=== PATIENT | male | born 1965 | race Caucasian/White ===

== ENCOUNTER 2022-07-26 12:58 | Inpatient (IN) | payer BC, MEDICARE ==
[~2022-07-26] VITALS: Ht 167.6 cm; Wt 101.6 kg
[2022-07-26] MEDS ORDERED: ONDANSETRON HCL 4MG/2ML INJ IV STA (13:32)
[2022-07-26] MEDS ORDERED: MECLIZINE 25MG TABLET PO ONE (13:45)
[2022-07-26] MEDS ORDERED: SODIUM CHLORIDE 0.9% 1,000 ML IV ONE (13:45)
[2022-07-26 13:48] LABS: BASOPHILS % 0.3 % (0.0-2.0); EOSINOPHILS % 1.1 % (0.0-5.0); HEMATOCRIT. 44.1 % (42.0-52.0); HEMOGLOBIN. 15.4 g/dL (14.0-18.0); LYMPHOCYTES % 20.7 % (20.0-50.0); MEAN CORPUSCULAR HEMOGLOBIN 29.6 pg (28.0-32.0); MEAN CORPUSCULAR VOLUME 84.8 fL (80.0-94.0); MEAN PLATELET VOLUME 8.7 fl (7.4-10.4); MONOCYTES % 5.1 % (2.0-8.0); NEUTROPHILS % 72.8 % (40.0-76.0); PLATELET 330 x1000/uL (130-400); RED CELL DISTRIBUTION WIDTH 13.3 % (11.6-14.6)
[2022-07-26 13:54] LABS: CHLORIDE 103 mEq/L (98-107)
[2022-07-26 13:58] LABS: PARTIAL THROMBOPLASTIN TIME 28.5 sec (23.4-31.0)
[2022-07-26] MEDS ORDERED: KCL 20MEQ/100ML PREMIX 100 ML IV ONE (14:30)
[2022-07-26] MEDS ORDERED: POTASSIUM CHLORIDE 20MEQ TABLET SR PO ONE (14:30)
[2022-07-26] MEDS ORDERED: MAGNESIUM 1 G PREMIX 100 ML IV ONE (14:30)
[2022-07-26] MEDS ORDERED: AZITHROMYCIN 500MG/250ML 250 ML IV ONE (15:30)
[2022-07-26] MEDS ORDERED: CEFTRIAXONE 1 G PREMIX 50 ML IV ONE (15:30)
[2022-07-26] MEDS ORDERED: SODIUM CHLORIDE 0.9% 1000ML BAG (SEPSIS BOLUS) IV ONE (15:30)
[2022-07-26] MEDS ORDERED: ASPIRIN 81MG TABLET PO ONE (15:30)
[2022-07-26 18:35] LABS: CLARITY URINE CLEAR (CLEAR); COLOR URINE YELLOW (YELLOW); KETONES URINE NEGATIVE (NEGATIVE); LEUKOCYTE ESTERASE URINE NEGATIVE (NEGATIVE); NITRITE URINE NEGATIVE (NEGATIVE); OCCULT BLOOD URINE NEGATIVE (NEGATIVE); PROTEIN URINE 1+ (NEGATIVE); UROBILINOGEN URINE 0.2 E.U./dL (0.2-1.0)
[2022-07-26 21:45] VITALS: BP 147/79
[2022-07-26] MEDS ORDERED: ATEN-42 PO (23:13)
[2022-07-26] MEDS ORDERED: HYDR25TA PO (23:13)
[2022-07-26] MEDS ORDERED: AMLO5TAB88 PO (23:13)
[2022-07-26] MEDS ORDERED: LISI20TA31 PO (23:13)
[2022-07-26] MEDS ORDERED: ONDANSETRON HCL 4MG/2ML INJ IV PRN (23:15)
[2022-07-27] VITALS: BP 152/92
[2022-07-27 04:00] VITALS: BP 155/82
[2022-07-27 05:34] LABS: BASOPHILS % 0.2 % (0.0-2.0); EOSINOPHILS % 0.3 % (0.0-5.0); HEMATOCRIT. 41.9 % (42.0-52.0); HEMOGLOBIN. 14.7 g/dL (14.0-18.0); LYMPHOCYTES % 19.4 % (20.0-50.0); MEAN CORPUSCULAR HEMOGLOBIN 29.6 pg (28.0-32.0); MEAN CORPUSCULAR VOLUME 84.4 fL (80.0-94.0); MEAN PLATELET VOLUME 8.9 fl (7.4-10.4); MONOCYTES % 10.2 % (2.0-8.0); NEUTROPHILS % 69.9 % (40.0-76.0); PLATELET 291 x1000/uL (130-400); RED BLOOD CELL COUNT 4.97 mill/uL (4.7-6.1); RED CELL DISTRIBUTION WIDTH 13.3 % (11.6-14.6)
[2022-07-27 06:00] LABS: CHLORIDE 103 mEq/L (98-107)
[2022-07-27 06:07] LABS: HDL CHOLESTEROL 32 mg/dL (40-59); LDL CHOLESTEROL 134 mg/dL (5-100)
[2022-07-27 08:00] VITALS: BP 150/90
[2022-07-27] MEDS ORDERED: KCL 20MEQ/100ML PREMIX 100 ML IV NR ×2 (08:00)
[2022-07-27] MEDS ORDERED: LISINOPRIL 20MG TABLET PO SCH (09:00)
[2022-07-27] MEDS: ASPIRIN 81MG TABLET PO SCH (09:27)
[2022-07-27] MEDS: AMLODIPINE 5MG TABLET PO SCH (09:28)
[2022-07-27] MEDS: METOPROLOL TARTRATE 25MG TABLET PO SCH ×2 (09:29→21:15)
[2022-07-27] MEDS ORDERED: LORAZEPAM 1MG TABLET PO NR (11:30)
[2022-07-27 12:00] VITALS: BP 157/95
[2022-07-27] MEDS ORDERED: CLONIDINE 0.1MG TABLET PO PRN (13:00)
[2022-07-27] MEDS ORDERED: POTASSIUM CHLORIDE 20MEQ TABLET SR PO SCH (13:30)
[2022-07-27] MEDS ORDERED: ENOXAPARIN 30MG/0.3ML SYR SUBCUT SCH (15:00)
[2022-07-27 16:00] VITALS: BP 163/92
[2022-07-27] MEDS: LISINOPRIL 20MG TABLET PO SCH (17:32)
[2022-07-27] MEDS ORDERED: TRAMADOL 50MG TABLET PO PRN (19:30)
[2022-07-27 20:00] VITALS: BP 131/86
[2022-07-27] MEDS ORDERED: ATORVASTATIN CALCIUM 40MG TABLET PO SCH (21:00)
[2022-07-27] MEDS: ENOXAPARIN 30MG/0.3ML SYR SUBCUT SCH (21:09)
[2022-07-28] VITALS: BP_SYST 140; BP_SYST 146; BP_DIAS 88; BP_DIAS 92
[2022-07-28 04:00] VITALS: BP 146/88
[2022-07-28 08:00] VITALS: BP 150/88
[2022-07-28] MEDS: LISINOPRIL 20MG TABLET PO SCH (09:03)
[2022-07-28] MEDS: ASPIRIN 81MG TABLET PO SCH (09:03)
[2022-07-28] MEDS: ENOXAPARIN 30MG/0.3ML SYR SUBCUT SCH (09:03)
[2022-07-28] MEDS: AMLODIPINE 5MG TABLET PO SCH (09:03)
[2022-07-28 12:00] VITALS: BP 152/97
[2022-07-28] MEDS ORDERED: CLOPIDOGREL 75MG TABLET PO SCH (12:15)
[2022-07-28 12:38] LABS: HEMATOCRIT 45.1 % (42.0-52.0); HEMOGLOBIN 15.6 g/dL (14.0-18.0); MEAN CORPUSCULAR HEMOGLOBIN 29.2 pg (28.0-32.0); MEAN CORPUSCULAR VOLUME 84.3 fL (80.0-94.0); PLATELET 312 x1000/uL (130-400); RED BLOOD CELL COUNT 5.35 mill/uL (4.7-6.1); RED CELL DISTRIBUTION WIDTH 13.2 % (11.6-14.6)
[2022-07-28] MEDS ORDERED: BACITRACIN 15GM TUBE TOP NR (13:00)
[2022-07-28 13:04] LABS: CHLORIDE 104 mEq/L (98-107)
[2022-07-28] MEDS ORDERED: POTASSIUM CHLORIDE 20MEQ TABLET SR PO NR (13:45)
[2022-07-28 14:23] VITALS: BP 152/97
[2022-07-28] MEDS ORDERED: CLOP75TA15 PO (15:15)
[2022-07-28] MEDS ORDERED: LIP40 PO (15:15)
[2022-07-28] MEDS ORDERED: ASPI-1160 PO (15:15)
[2022-07-28] MEDS ORDERED: ATORVASTATIN CALCIUM 40MG TABLET PO SCH (21:00)
== END 2022-07-28 15:02 | disposition home or self-care (01) | DRG 64 ==
LOC: ER 12:58 → 8WST 15:36 → EDBEDREQ 15:50 → EDBEDREQTM 15:50 → ENRESERV 19:05 → 8WST 22:30
PROVIDERS: ADMIT Internal Medicine; ATTEND Internal Medicine
DX: I63.9 Cerebral infarction, unspecified (principal); J18.9 Pneumonia, unspecified organism; E87.6 Hypokalemia; Z20.822 Contact with and (suspected) exposure to COVID-19; E66.01 Morbid (severe) obesity due to excess calories; I11.9 Hypertensive heart disease without heart failure; G89.29 Other chronic pain; Z68.36 Body mass index [BMI] 36.0-36.9, adult
CPT/HCPCS: 36415; 70551; 71045; 80048; 80053; 80061; 81003; 82962; 83036; 83605; 83735; 83880; 84484; 85025; 85027; 87426; 93005; 93880; 95816; 97162; 97166; 99285; C9803; J0456; J0696; J1650; J2405; J3475; J3480; J7030; J8597